=== PATIENT | male | born 1995 | race African-American/Black ===

== ENCOUNTER 2017-04-23 05:36 | Emergency (ER) | payer OTHER ==
[~2017-04-23] VITALS: Ht 180.3 cm; Wt 90.7 kg
[~2017-04-23 05:36] MED LIST: AMOXICILLIN 50500 M1 PO; MEDROLDOSEPACK PO; NAPROSYN500 MG PO; PROVENTIL HFA6.7 G1; ZOFRAN ODT4 MG PO
[2017-04-23 05:38] VITALS: BP 126/77
[2017-04-23] MEDS ORDERED: MOBIC15 MG PO (06:28)
== END 2017-04-23 06:34 | disposition home or self-care (01) ==
LOC: ER 05:36
DX: K02.9 Dental caries, unspecified (principal); K08.89 Other specified disorders of teeth and supporting structures; F17.210 Nicotine dependence, cigarettes, uncomplicated; F10.99 Alcohol use, unspecified with unspecified alcohol-induced disorder; J45.909 Unspecified asthma, uncomplicated

== ENCOUNTER 2017-08-24 10:48 | Emergency (ER) | payer OTHER ==
[~2017-08-24] VITALS: Ht 182.9 cm; Wt 90.7 kg
[~2017-08-24 10:48] MED LIST changes: +MOBIC15 MG PO
[2017-08-24] MEDS ORDERED: PROAIR HFA8.5 GM (11:00)
[2017-08-24] MEDS ORDERED: TESSALON PERLE100 MG PO (11:49)
== END 2017-08-24 12:01 | disposition home or self-care (01) ==
LOC: ER 10:48
DX: J06.9 Acute upper respiratory infection, unspecified (principal); J45.909 Unspecified asthma, uncomplicated; F17.210 Nicotine dependence, cigarettes, uncomplicated; F10.99 Alcohol use, unspecified with unspecified alcohol-induced disorder

== ENCOUNTER 2019-03-04 13:43 | Emergency (ER) | payer OTHER ==
[~2019-03-04] VITALS: Ht 177.8 cm; Wt 95.3 kg
[~2019-03-04 13:43] MED LIST changes: +PROAIR HFA8.5 GM; +TESSALON PERLE100 MG PO
[2019-03-04] MEDS ORDERED: MOBIC15 MG PO (14:29)
[2019-03-04] MEDS ORDERED: CYCLOBENZAPRINE5 MG PO (14:29)
[2019-03-04 15:20] VITALS: BP 117/82
== END 2019-03-04 15:20 | disposition home or self-care (01) ==
LOC: ER 13:43
DX: M62.830 Muscle spasm of back (principal); J45.909 Unspecified asthma, uncomplicated; F17.210 Nicotine dependence, cigarettes, uncomplicated

== ENCOUNTER 2019-10-26 13:43 | Emergency (ER) | payer OTHER ==
[~2019-10-26] VITALS: Ht 180.3 cm; Wt 108.9 kg
[~2019-10-26 13:43] MED LIST changes: +CYCLOBENZAPRINE5 MG PO
[2019-10-26 14:12] LABS: ABSOLUTE NEUTROPHILS 3.9 thou/uL (1.4-8.2); BASOPHILS 0.9 % (0.0-2.0); EOSINOPHILS 5.9 % (0.0-3.0); HEMATOCRIT 46.8 % (42.0-52.0); HEMOGLOBIN 16.1 gm/dL (14.0-18.0); MCH 29.7 pg (26.0-34.0); MCHC 34.3 g/dL (28.0-37.0); MCV 86.6 fL (80.0-100.0); MONOCYTES 6.6 % (1.0-8.0); PLATELET COUNT 272 thou/uL (150-400); POLYS 64.6 % (36.0-66.0); RBC 5.41 mil/uL (4.50-6.00); RDW 13.6 % (10.5-14.5); WBC 6.1 thou/uL (4.0-11.0)
[2019-10-26 14:26] LABS: CALCIUM 8.9 mg/dL (8.5-10.1); POTASSIUM 3.8 mmol/L (3.5-5.1)
[2019-10-26 14:31] LABS: ALBUMIN 4.2 g/dL (3.4-5.0); TOTAL BILIRUBIN 0.7 mg/dL (<0.1-1.0); TOTAL PROTEIN 7.6 g/dL (6.4-8.2)
[2019-10-26 15:03] LABS: URINE BILIRUBIN NEGATIVE (Negative); URINE BLOOD NEGATIVE (Negative); URINE CLARITY CLEAR; URINE COLOR YELLOW; URINE GLUCOSE-RANDOM* NEGATIVE (Negative); URINE KETONES NEGATIVE (Negative); URINE LEUKOCYTES-REFLEX NEGATIVE (Negative); URINE NITRITE-REFLEX NEGATIVE (Negative); URINE PROTEIN (DIPSTICK) NEGATIVE (Negative); URINE SPECIFIC GRAVITY 1.015 (1.005-1.035); URINE UROBILINOGEN 0.2 E.U./dl (0.2-1.0)
[2019-10-26 15:18] LABS: AMP/METHAMP Negative (Negative); BARBITURATES Negative (Negative); BENZODIAZEPINES Negative (Negative); COCAINE Negative (Negative); METHADONE Negative (Negative); OPIATES Negative (Negative); PCP Negative (Negative)
[2019-10-26] MEDS ORDERED: ZOFRAN ODT4 MG PO (15:24)
[2019-10-26 15:36] VITALS: BP 119/80
== END 2019-10-26 15:37 | disposition home or self-care (01) ==
LOC: ER 13:43
PROVIDERS: Nurse Practitioner Family
DX: K29.70 Gastritis, unspecified, without bleeding (principal); R19.7 Diarrhea, unspecified; J45.909 Unspecified asthma, uncomplicated; F12.90 Cannabis use, unspecified, uncomplicated; F17.210 Nicotine dependence, cigarettes, uncomplicated; Z79.899 Other long term (current) drug therapy